=== PATIENT | male | born 1960 | race Caucasian/White ===

== ENCOUNTER 2017-09-11 11:29 | Emergency (ER) | payer OTHER ==
[~2017-09-11] VITALS: Ht 177.8 cm; Wt 103.0 kg
[~2017-09-11 11:29] MED LIST: LEVO25TA36 PO; LORA10TA7 PO
[2017-09-11 11:37] VITALS: BP 153/70; PULSE 74; RESP 16; TEMP 97.6; O2SAT 96
[2017-09-11] MEDS ORDERED: LEVO75TA3 PO (12:10)
[2017-09-11] MEDS ORDERED: IBUPROFEN 800 MG TAB PO ONE (12:45)
--- NOTE | 2017-09-11 13:04 | RADRPT ---
EXAM DATE/TIME: 09/11/2017 12:51 [place] COMPARISON: No previous studies available for comparison. INDICATIONS : Right hand swelling post dropping couch on hand. MEDICAL HISTORY : None. SURGICAL HISTORY : None. ENCOUNTER: Initial ACUITY: 1 day PAIN SCORE: 3/10 LOCATION: Right posterior hand FINDINGS: The exam demonstrates extensive soft tissue swelling along the dorsal aspect of the right hand. There is no definite gas within the subcutaneous soft tissues. The visualized osseous structures are gross ly intact. The alignment is anatomic. CONCLUSION: 1. Extensive soft tissue swelling. No acute fracture identified. Efrain Neri MD on September 11, 2017 at 13:01 Board Certified Radiologist. This report was verified electronically.
--- NOTE | 2017-09-11 13:05 | PD ---
HPI Chief Complaint: Injury Time Seen by Provider: 12:19 Travel History International Travel<30 days: No Contact w/Intl Traveler<30days: No Traveled to known affect area: No History of Present Illness HPI 57-year-old left-hand dominant male presents to the ED for evaluation of swelling of the right hand. Onset after the patient was helping to load a small forklift into a truck and smashed it between 2 metal surfaces. He denies pain, numbness, tingling, weakness, limitations to range of motion of the extremity. He denies injury to the area previously. He is requesting drainage of the large hematoma on the dorsal aspect of the hand. PFSH Past Medical History Hx Anticoagulant Therapy: No Arthritis: No Asthma: No Autoimmune Disease: No Blood Disorders: No Anxiety: No Depression: No Heart Rhythm Problems: No Cancer: No Cardiovascular Problems: Yes High Cholesterol: No Chest Pain: No Congestive Heart Failure: No COPD: No Cerebrovascular Accident: No Diabetes: No Diminished Hearing: No Endocrine: Yes GERD: No Glaucoma: No Genitourinary: No Headaches: No Hepatitis: No Hiatal Hernia: No Hypertension: Yes (NOT ON ANY MEDS) Immune Disorder: No Implanted Vascular Access Dvce: No Kidney Stones: No Musculoskeletal: No Neurologic: No Psychiatric: No Reproductive: No Respiratory: Yes (DEVIATED SEPTUM) Migraines: No Myocardial Infarction: No Renal Failure: No Seizures: No Sickle Cell Disease: No Sleep Apnea: Yes Thyroid Disease: Yes Ulcer: No Influenza Vaccination: Yes Past Surgical History Abdominal Surgery: No AICD: No Appendectomy: No Arteriovenous Shunt: No Cardiac Surgery: No Cholecystectomy: No Ear Surgery: No Endocrine Surgery: No Eye Surgery: No Genitourinary Surgery: No Gynecologic Surgery: No Insulin Pump: No Joint Replacement: No Oral Surgery: Yes (TONSILLECTOMY) Pacemaker: No Thoracic Surgery: No Other Surgery: Yes Social History Alcohol Use: Yes (OCCASIONALLY A BEER.) Tobacco Use: No Substance Use: No Allergies-Medications (Allergen,Severity, Reaction): Coded Allergies: No Known Allergies (Verified Allergy, Mild, 09/11/17) Reported Meds & Prescriptions Reported Meds & Active Scripts Active Reported Levothyroxine (Levothyroxine Sodium) 75 Mcg Tab 75 Mcg PO DAILY Review of Systems Except as stated in HPI: all other systems reviewed are Neg Physical Exam Narrative GENERAL: Well-nourished, well-developed white male in no acute distress. SKIN: Focused skin assessment warm/dry. HEAD: Normocephalic. EYES: No scleral icterus. No injection or drainage. NECK: Supple, trachea midline. No JVD or lymphadenopathy. CARDIOVASCULAR: Regular rate and rhythm without murmurs, gallops, or rubs. RESPIRATORY: Breath sounds equal bilaterally. No accessory muscle use. GASTROINTESTINAL: Abdomen soft, non-tender, nondistended. MUSCULOSKELETAL: No cyanosis, or edema. FOCUSED RIGHT UPPER EXTREMITY EXAM: 2+ radial pulse. There is a large hematoma carpal bones on the dorsal aspect of the hands. Patient maintains full, active painless ROM of the hand and wrist. Strong finger to thumb opposition with each digit. Neurovascularly intact distally. BACK: Nontender without obvious deformity. No CVA tenderness. Data Data Last Documented VS Vital Signs Date Time Temp Pulse Resp B/P (MAP) Pulse Ox O2 Delivery O2 Flow Rate FiO2 09/11/17 11:37 97.6 74 16 153/70 (97) 96 Orders Orders Hand, Complete ([id number]) (09/11/17 12:43) Ice/Cold Pack (09/11/17 12:43) Ibuprofen (Motrin) (09/11/17 12:45) Manav Bandage (09/11/17 13:17) Ed Discharge Order (09/11/17 13:21) MDM Medical Decision Making Medical Screen Exam Complete: Yes Emergency Medical Condition: Yes Differential Diagnosis Contusion versus hematoma versus fracture versus location versus other Narrative Course 57-year-old left-hand dominant male presents to the ED for evaluation of swelling of the right hand. Onset after the patient was helping to load a small forklift into a truck and smashed it between 2 metal surfaces. He denies pain, numbness, tingling, weakness, limitations to range of motion of the extremity. He is requesting drainage of the large hematoma on the dorsal aspect of the hand. Vitals reviewed. Physical exam reveals a large hematoma on the dorsal aspect of the hand but the upper extremity is otherwise intact. Pack was applied. Patient was administered 800 mg ibuprofen. X-ray reveals no acute fracture. Contusion with hematoma. I explained to the patient that rest , ice, elevation and compression will help to reduce the swelling symptoms. He states that it is "annoying because my skin is stretched tight and I drive a stick shift. " He again request that we drain the hematoma. I explained to him that this is not appropriate treatment. I discussed the patient with Dr. He, who is in agreement with my plan. Manav wrap was applied. Patient's prescribed a short course of his medications. He is instructed to RICE the extremity. I discussed reasons to return to the ED. He indicated understanding of instructions. Patient is stable and discharged home. Diagnosis Primary Impression: Traumatic hematoma of right hand Qualified Codes: S60.221A - Contusion of right hand, initial encounter Additional Impression: Contusion of right hand, initial encounter Referrals: Primary Care Physician Patient Instructions: Contusion in Adults (ED), General Instructions, Hematoma (ED) Additional Instructions: Rest, ice, compress, elevate the extremity. Apply ice no longer than 10-15 minutes per hour a few times a day. 800 mg ibuprofen up to 3 times a day as needed for pain. Compression and elevation will help to drain the fluid in the area. Ice and ibuprofen will help to keep new fluid from forming. Return to normal, gentle activity as tolerated. Return to the ED for any urgent or emergent medical condition. Med/Other Pt SpecificInfo: Prescription(s) given Scripts Ibuprofen (Ibuprofen) 800 Mg Tab 800 MG PO Q8H, #15 TAB 0 Refills Prov: Earl He MD 09/11/17 Disposition: 01 DISCHARGE HOME Condition: Stable Lexy Solorzano Sep 11, 2017 13:05
[2017-09-11] MEDS ORDERED: IBUP1TAB7 PO (13:21)
== END 2017-09-11 13:49 | disposition home or self-care (01) ==
LOC: PHEFT 11:29
DX: S60.221A Contusion of right hand, initial encounter (principal); I10 Essential (primary) hypertension; E07.9 Disorder of thyroid, unspecified; W23.0XXA Caught, crushed, jammed, or pinched between moving objects, initial encounter
CPT/HCPCS: 73130; 99283